=== PATIENT | male | born 1990 | race Caucasian/White ===

== ENCOUNTER 2016-06-25 17:24 | Emergency (ER) | payer BC ==
[2016-06-25] MEDS ORDERED: Toprol-Xl 25MG Tablets PO ONE (17:43)
[2016-06-25] MEDS ORDERED: Sodium Chloride 0.9% 1000 ML 1,000 ML IV SCH (17:45)
--- NOTE | 2016-06-25 17:51 | ERPHSYRPT ---
- History of Present Illness Time Seen by Provider: 06/25/16 17:30 Source: patient, family Exam Limitations: no limitations Patient Subjective Stated Complaint: PT CO FAST HEART RATE OFF AND ON FOR OVER A YEAR NOW, BUT GETTING MORE FREQUENT AND LASTING LONGER, GOT A HALTER MONITOR PLACED TODAY. STATES HEART RATE FAST SINCE 1500 TODAY, HE HAS CUT OUT ALL CAFFINE Triage Nursing Assessment: PT ALERT AND IN NO DISTRESS, RESP EASY, SKIN W/D. RATE REGULAR, Physician History: patient presents with palpatations since Wednesday; prior hx intermittant palpatations x one year; no CP or SOB; no Nausea; no fevcer; no travel; no family hx; no trauma; no drugs; other zarco healthy; no caffeine more then 2 cups a day; no hx of thyroid Timing/Duration: day(s) (2), sudden, worse Activities at Onset: rest Quality: other Chest Pain Radiation: no radiation Severity of Pain-Max: none Severity of Pain-Current: none Modifying Factors: Improves With: nothing Nitro Today/Relief: no nitro taken today Aspirin Treatment Today: no aspirin today Associated Symptoms: denies symptoms Allergies/Adverse Reactions: No Known Drug Allergies Allergy (Unverified 02/04/15 07:55) Home Medications: Citalopram Hydrobromide [Celexa] 10 mg DAILY 06/25/16 [History] Hx Tetanus, Diphtheria Vaccination/Date Given: Yes Hx Influenza Vaccination/Date Given: No Hx Pneumococcal Vaccination/Date Given: No Immunizations Up to Date: Yes - Review of Systems Constitutional: No Symptoms Eyes: No Symptoms Ears, Nose, & Throat: No Symptoms Respiratory: No Cough, No Dyspnea, No Wheezing Cardiac: Palpitations, No Chest Pain, No Edema, No Syncope Abdominal/Gastrointestinal: No Abdominal Pain, No Nausea, No Vomiting, No Diarrhea Genitourinary Symptoms: No Symptoms Musculoskeletal: No Symptoms Skin: No Symptoms Neurological: Dizziness, No Focal Weakness, No Gait Changes, No Headache, No Paralysis, No Parasthesia Psychological: No Symptoms Endocrine: No Symptoms Hematologic/Lymphatic: No Symptoms Immunological/Allergic: No Symptoms - Past Medical History Pertinent Past Medical History: Yes Musculoskeletal History: Other Other Medical History: left shoulder dislocated x10 - Past Surgical History Past Surgical History: Yes Other Surgical History: LEFT SHOULDER - Social History Smoking Status: Never smoker Exposure to second hand smoke: No Alcohol Use: Socially Drug Use: none Patient Lives Alone: No Significant Family History: no pertinent family hx - Nursing Vital Signs Temperature: 98.1 F Temperature Source: Oral Pulse Rate: 114 Respiratory Rate: 16 Pain Intensity: 0 - Physical Exam General Appearance: mild distress, alert, anxiety Eye Exam: PERRL/EOMI, eyes nml inspection, No photophobia Ears, Nose, Throat Exam: normal ENT inspection, TMs normal, pharynx normal, moist mucous membranes Neck Exam: normal inspection, non-tender, supple, full range of motion, No meningismus, No carotid bruit, No JVD, No thyromegaly Respiratory Exam: normal breath sounds, lungs clear, airway intact, No chest tenderness, No respiratory distress, No crackles/rales, No rhonchi, No wheezing Cardiovascular Exam: regular rate/rhythm, normal heart sounds, normal peripheral pulses, tachycardia (131), capillary refill <2 sec, No murmur, No friction rub Gastrointestinal/Abdomen Exam: soft, normal bowel sounds, No tenderness, No mass , No guarding, No organomegaly Rectal Exam: deferred Back Exam: normal inspection, normal range of motion, No CVA tenderness Extremity Exam: normal inspection, normal range of motion, No ben's sign, No pedal edema Neurologic Exam: alert, oriented x 3, cooperative, medicine aide II-XII nml as tested, normal mood/affect, nml cerebellar function, nml station & gait, sensation nml Skin Exam: normal color, warm, dry, No rash SpO2 Interpretation: normal SpO2: 98 Oxygen Delivery: Room Air - Course Nursing assessment & vital signs reviewed: Yes EKG Interpreted by Me: RATE (103), Sinus Tach, NORMAL AXIS, NORMAL INTERVALS, NORMAL QRS, NORMAL ST-T Rhythm Strip: Rate (131), Sinus Tachycardia (131) - Radiology Exams Chest X-ray Interpretation: Interpreted by me, Negative, No Pneumonia, No Pneumothorax , Nml Heart Size, No Infiltrates, Nml Mediastinum Ordered Tests: Active Orders 24 hr Category Date Time Status Injection Molder STAT Care 06/25/16 17:43 Active IV Insertion STAT Care 06/25/16 17:43 Active Pulse Oximetry (ED) STAT Care 06/25/16 17:43 Active Re-Check Vital Signs STAT Care 06/25/16 17:43 Active CHEST 1 VIEW (PORTABLE) Stat Exams 06/25/16 17:44 Taken CBC W DIFF Stat Lab 06/25/16 18:00 Completed CMP Stat Lab 06/25/16 18:00 Completed Free T4 Stat Lab 06/25/16 18:00 Completed MAGNESIUM Stat Lab 06/25/16 18:00 Completed PROTIME WITH INR Stat Lab 06/25/16 18:00 Completed T4 Stat Lab 06/25/16 18:00 Completed UA Stat Lab 06/25/16 17:44 Ordered Urine Triage Profile Stat Lab 06/25/16 17:44 Ordered Medication Summary Generic Name Dose Route Start Last Admin Trade Name Freq PRN Reason Stop Dose Admin Sodium Chloride 1,000 mls @ 100 mls/hr 06/25/16 17:45 06/25/16 17:57 Sodium Chloride 0.9% 1000 Ml IV 07/25/16 17:44 100 mls/hr .Q10H ANTONIA Administration Discontinued Medications Generic Name Dose Route Start Last Admin Trade Name Freq PRN Reason Stop Dose Admin Sodium Chloride Confirm 06/25/16 17:56 Sodium Chloride 0.9% 1000 Ml Administered 06/25/16 17:57 Dose 1,000 mls @ ud .ROUTE .STK-MED ONE Metoprolol Succinate 25 mg 06/25/16 17:43 06/25/16 17:57 Toprol-Xl 25mg Tablets PO 06/25/16 17:44 25 mg STAT ONE Administration Metoprolol Succinate Confirm 06/25/16 17:56 Toprol-Xl 25mg Tablets Administered 06/25/16 17:57 Dose 25 mg .ROUTE .STK-MED ONE Lab/Rad Data: Laboratory Result Diagrams 06/25/16 18:00 06/25/16 18:00 Laboratory Results 06/25/16 06/25/16 06/25/16 Range/Units 18:00 18:00 18:00 WBC (4.0-10.5) K/mm3 RBC (4.1-5.6) M/mm3 Hgb (12.5-18.0) gm/dl Hct (42-50) % MCV (78-100) fl MCH (26-32) pg MCHC (32-36) g/dl RDW (11.5-14.0) % Plt Count (150-450) K/mm3 MPV (6-9.5) fl Gran % (36.0-66.0) % Lymphocytes % (24.0-44.0) % Monocytes % (0.0-12.0) % Eosinophils % (0.00-5.0) % Basophils % (0.0-0.4) % Basophils # (0-0.4) INR 1.20 (0.8-3.0) Sodium 142 (136-145) mEq/L Potassium 3.9 (3.5-5.1) mEq/L Chloride 104 (98-107) mEq/L Carbon Dioxide 27.6 (21-32) mEq/L Anion Gap 13.8 (5-15) MEQ/L BUN 12 (9-20) mg/dL Creatinine 1.31 H (0.55-1.30) mg/dl Estimated GFR > 60 ML/MIN Glucose 151 H (70-110) MG/DL Calcium 9.5 (8.5-10.1) mg/dL Magnesium 2.0 (1.8-2.4) mg/dL Total Bilirubin 1.0 (0.2-1.0) mg/dL AST 15 (15-37) U/L ALT 30 (12-78) U/L Alkaline Phosphatase 106 (46-116) U/L Serum Total Protein 7.4 (6.4-8.2) gm/dL Albumin 4.5 (3.4-5.0) g/dL Free T4 1.20 (0.76-1.46) ng/dl Thyroxine (T4) 8.2 (4.7-13.3) UG/DL 06/25/16 Range/Units 18:00 WBC 12.2 H (4.0-10.5) K/mm3 RBC 5.12 (4.1-5.6) M/mm3 Hgb 15.0 (12.5-18.0) gm/dl Hct 42.7 (42-50) % MCV 83.4 (78-100) fl MCH 29.3 (26-32) pg MCHC 35.1 (32-36) g/dl RDW 12.4 (11.5-14.0) % Plt Count 284 (150-450) K/mm3 MPV 10.1 H (6-9.5) fl Gran % 87.0 H (36.0-66.0) % Lymphocytes % 8.9 L (24.0-44.0) % Monocytes % 3.8 (0.0-12.0) % Eosinophils % 0.1 (0.00-5.0) % Basophils % 0.2 (0.0-0.4) % Basophils # 0.02 (0-0.4) INR (0.8-3.0) Sodium (136-145) mEq/L Potassium (3.5-5.1) mEq/L Chloride (98-107) mEq/L Carbon Dioxide (21-32) mEq/L Anion Gap (5-15) MEQ/L BUN (9-20) mg/dL Creatinine (0.55-1.30) mg/dl Estimated GFR ML/MIN Glucose (70-110) MG/DL Calcium (8.5-10.1) mg/dL Magnesium (1.8-2.4) mg/dL Total Bilirubin (0.2-1.0) mg/dL AST (15-37) U/L ALT (12-78) U/L Alkaline Phosphatase (46-116) U/L Serum Total Protein (6.4-8.2) gm/dL Albumin (3.4-5.0) g/dL Free T4 (0.76-1.46) ng/dl Thyroxine (T4) (4.7-13.3) UG/DL reviewed - Progress Progress: improved, re-examined (after meds) Air Movement: good Progress Note: 06/25/16 17:51 ekg and xr done; meds given; at bedside will recheck 06/25/16 18:34 recheck post meds; pulse down to 91; symptoms improved; xr pending; cbx ok; reviewed labs from earlier and all wnl including thyroid; xr pending; will continue to monitor and recheck; at bedside 06/25/16 18:50 improved vs and clinically feeling better; treatment plan outlined; instructions given Blood Culture(s) Obtained: No Antibiotics given: No Counseled pt/family regarding: lab results, diagnosis, need for follow-up, rad results - Departure Time of Disposition: 18:51 Departure Disposition: Home Clinical Impression: Heart palpitations, Sinus tachycardia by electrocardiogram Condition: Stable Critical Care Time: No Referrals: EDIS CHO [ACTIVE STAFF] - Instructions: Arrhythmias Additional Instructions: rest; no work 48 hours; avoid stimulants - nuts; chocolate, caffeine; call lmd for recheck and cardiology referral Follow-up with family doctor as directed. Call for appointment. Return if any problems. If you smoke please stop. Call or follow up with your family doctor for assistance if you need it to stop. Please wear your seatbelt when driving. Have a nice day. Thank you for allowing us to participate in your care today. :o) Dr Yaya Gaitan Prescriptions: Metoprolol Succinate 25 mg Xl* [Toprol-Xl 25MG Tablets] 25 mg PO QAM #30 tab
[2016-06-25] MEDS ORDERED: Toprol-Xl 25MG Tablets ONE (17:56)
[2016-06-25] MEDS ORDERED: Sodium Chloride 0.9% 1000 ML 1,000 ML ONE (17:56)
[2016-06-25 18:09] LABS: BASOPHIL % 0.2 % (0.0-0.4); Eosinophil % 0.1 % (0.00-5.0); Lymphocytes % 8.9 % (24.0-44.0); Mean Cell Volume 83.4 fl (78-100); Mean Corpuscular Hemoglobin 29.3 pg (26-32); Mean Platelet Volume 10.1 fl (6-9.5); Monocytes % 3.8 % (0.0-12.0); Platelet Count 284 K/mm3 (150-450); Red Blood Count 5.12 M/mm3 (4.1-5.6); Red Cell Distribution Width 12.4 % (11.5-14.0); White Blood Count 12.2 K/mm3 (4.0-10.5)
[2016-06-25 18:33] LABS: INR 1.2 (0.8-3.0); PROTIME 13.4 SECONDS (8.83-12.87)
[2016-06-25 18:36] LABS: ALBUMIN 4.5 g/dL (3.4-5.0); ALKALINE PHOSPHATASE 106 U/L (46-116); ANION GAP 13.8 MEQ/L (5-15); BLOOD UREA NITROGEN 12 mg/dL (9-20); CHLORIDE 104 mEq/L (98-107); Carbon Dioxide 27.6 mEq/L (21-32); Glucose 151 MG/DL (70-110); Potassium 3.9 mEq/L (3.5-5.1); SGOT/AST 15 U/L (15-37); SGPT/ALT 30 U/L (12-78); SODIUM 142 mEq/L (136-145); Total Protein 7.4 gm/dL (6.4-8.2)
[2016-06-25 19:10] VITALS: BP 126/77; PULSE 103; O2SAT 97
--- NOTE | 2016-06-26 08:45 | XRAY ---
Indication: Palpitations. Comparison: None Portable chest demonstrates normal heart, lungs, and bony thorax with a few calcified granulomas.
== END 2016-06-25 19:09 | disposition home or self-care (01) ==
LOC: ED 17:24
DX: R00.2 Palpitations (principal); R00.0 Tachycardia, unspecified
CPT/HCPCS: 36000; 36415; 71010; 80053; 83735; 84436; 84439; 85025; 85610; 93041; 96360; 96361; 99283; 99284; 99285

== ENCOUNTER 2016-08-30 01:02 | Emergency (ER) | payer BC ==
--- NOTE | 2016-08-30 01:26 | ERPHSYRPT ---
- History of Present Illness Time Seen by Provider: 08/30/16 01:16 Historian: patient Exam Limitations: no limitations Patient Subjective Stated Complaint: pt states he got light headed, had chest pressure, and felt like he was going to pass out while working. Triage Nursing Assessment: pt alert and oriented, answers questions approp. skin pink warm and dry. pt moved slef over from ems cot to stretcher. respirations nonlbored with lungs cta. heart rate 87 sinus rhythm on monitor. Physician History: This is a 26-year-old white male he arrives with complaint of pain in anterior chest which she said initially was a pressure then became more intense pain lasting approximately 15 minutes which occurred at 11:[address] this was associated with feeling as if he was going to pass out patient did have shortness of breath associated with his symptoms he states he is not having any pain or shortness of breath at this time. Patient does state he has a history of Izjdv-Dfpvouhcj-Ubfsr and is scheduled for ablation the future. He has not taken any aspirin. Past medical history includes left shoulder dislocation, Atilu-Msgrktywi-Osdel syndrome. Past surgical history includes a shoulder surgery. Social history patient denies tobacco alcohol or illicit drug use Timing/Duration: today (11:00 PM) Activities at Onset: other (driving) Quality: pressure Location: substernal Chest Pain Radiation: no radiation Severity of Pain-Max: moderate Severity of Pain-Current: none Modifying Factors: Improves With: nothing Associated Symptoms: shortness of breath, other (patient felt like he was going to pass out), No nausea, No vomiting, No palpitations, No heartburn, No abdominal pain, No cough, No hurts to breathe, No diaphoresis, No chills, No fever, No fatigue, No weakness, No swelling/lump in chest, No syncope, No rash, No headache, No dizziness, No edema, No back pain Prior Chest Pain/Cardiac Workup: recently seen/treated (patient with history of Gimaz-Mycuegckb-Nxktb sees Dr. Shirley at [facility]) Aspirin Treatment Today: no aspirin today Allergies/Adverse Reactions: No Known Drug Allergies Allergy (Verified 08/30/16 01:43) Hx Tetanus, Diphtheria Vaccination/Date Given: Yes Hx Influenza Vaccination/Date Given: No Hx Pneumococcal Vaccination/Date Given: No Immunizations Up to Date: Yes - Review of Systems Constitutional: No Fever, No Chills Eyes: No Symptoms Ears, Nose, & Throat: No Symptoms Respiratory: Dyspnea, No Cough Cardiac: Chest Pain, No Edema, No Syncope Abdominal/Gastrointestinal: No Abdominal Pain, No Nausea, No Vomiting, No Diarrhea, No Constipation, No Hematemesis, No Hematochezia, No Melena, No Dysphagia, No Appetite Changes Genitourinary Symptoms: No Dysuria Musculoskeletal: No Back Pain, No Neck Pain Skin: No Rash Neurological: No Dizziness, No Focal Weakness, No Sensory Changes Psychological: No Symptoms Endocrine: No Symptoms All Other Systems: Reviewed and Negative - Past Medical History Pertinent Past Medical History: Yes Cardiac History: Other (history of Xpxqt-Hgrianflj-Ooaja disease) Musculoskeletal History: Other Other Medical History: left shoulder dislocated x10. 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 - Past Surgical History Past Surgical History: Yes Other Surgical History: LEFT SHOULDER - Social History Smoking Status: Never smoker Exposure to second hand smoke: No Alcohol Use: Socially Drug Use: none Patient Lives Alone: No Significant Family History: no pertinent family hx - Nursing Vital Signs Temperature: 97.9 F Temperature Source: Oral Pulse Rate: 73 Respiratory Rate: 18 Pain Intensity: 0 - Physical Exam General Appearance: no apparent distress, alert Eye Exam: PERRL/EOMI, eyes nml inspection Ears, Nose, Throat Exam: normal ENT inspection, moist mucous membranes Neck Exam: normal inspection, non-tender, supple, full range of motion Respiratory Exam: normal breath sounds, lungs clear, No respiratory distress Cardiovascular Exam: regular rate/rhythm, normal heart sounds Gastrointestinal/Abdomen Exam: soft, No tenderness, No mass Back Exam: normal inspection, No CVA tenderness, No vertebral tenderness Extremity Exam: normal inspection, normal range of motion Neurologic Exam: alert, oriented x 3, cooperative, normal mood/affect, sensation nml, No motor deficits Skin Exam: normal color, warm, dry SpO2 Interpretation: normal (97%) SpO2: 97 Oxygen Delivery: Room Air - Course Nursing assessment & vital signs reviewed: Yes EKG Interpreted by Me: RATE (72 bpm), Sinus Rhythm, NORMAL AXIS, Other ( EKG, sinus rhythm, 72 bpm, normal axis, no acute ST or T wave changes, moderate amount of artifact) Ordered Tests: Active Orders 24 hr Category Date Time Status Hospice Clinical Supervisor STAT Care 08/30/16 01:20 Active EKG-ER Only STAT Care 08/30/16 01:20 Active EKG-ER Only STAT Care 08/30/16 02:32 Active IV Insertion STAT Care 08/30/16 01:20 Active Pulse Oximetry (ED) STAT Care 08/30/16 01:20 Active CHEST 1 VIEW (PORTABLE) Stat Exams 08/30/16 01:21 Taken CBC W DIFF Stat Lab 08/30/16 01:28 Completed CMP Stat Lab 08/30/16 01:28 Completed TROPONIN Q3H Lab 08/30/16 01:28 Completed TROPONIN Q3H Lab 08/30/16 04:00 Completed TROPONIN Q3H Lab 08/30/16 07:30 Ordered TROPONIN Q3H Lab 08/30/16 10:30 Ordered TROPONIN Q3H Lab 08/30/16 13:30 Ordered Medication Summary Discontinued Medications Generic Name Dose Route Start Last Admin Trade Name Freq PRN Reason Stop Dose Admin Aspirin 324 mg 08/30/16 01:34 08/30/16 01:37 Baby Aspirin 81 Mg Chew PO 08/30/16 01:35 324 mg STAT ONE Administration Aspirin Confirm 08/30/16 01:37 Baby Aspirin 81 Mg Chew Administered 08/30/16 01:38 Dose 324 mg .ROUTE .STK-MED ONE Potassium Chloride 20 meq 08/30/16 02:57 08/30/16 03:14 Klor Con 10 Meq PO 08/30/16 02:58 20 meq STAT ONE Administration Potassium Chloride Confirm 08/30/16 03:13 Klor Con 10 Meq Administered 08/30/16 03:14 Dose 20 meq PO .STK-MED ONE Lab/Rad Data: Laboratory Result Diagrams 08/30/16 01:28 08/30/16 01:28 Laboratory Results 08/30/16 08/30/16 08/30/16 Range/Units 04:00 01:28 01:28 WBC (4.0-10.5) K/mm3 RBC (4.1-5.6) M/mm3 Hgb (12.5-18.0) gm/dl Hct (42-50) % MCV (78-100) fl MCH (26-32) pg MCHC (32-36) g/dl RDW (11.5-14.0) % Plt Count (150-450) K/mm3 MPV (6-9.5) fl Gran % (36.0-66.0) % Lymphocytes % (24.0-44.0) % Monocytes % (0.0-12.0) % Eosinophils % (0.00-5.0) % Basophils % (0.0-0.4) % Basophils # (0-0.4) Sodium 142 (136-145) mEq/L Potassium 3.2 L (3.5-5.1) mEq/L Chloride 103 (98-107) mEq/L Carbon Dioxide 29.7 (21-32) mEq/L Anion Gap 12.9 (5-15) MEQ/L BUN 15 (9-20) mg/dL Creatinine 1.45 H (0.55-1.30) mg/dl Estimated GFR > 60 ML/MIN Glucose 111 H (70-110) MG/DL Calcium 9.2 (8.5-10.1) mg/dL Total Bilirubin 0.6 (0.2-1.0) mg/dL AST 24 (15-37) U/L ALT 40 (12-78) U/L Alkaline Phosphatase 138 H (46-116) U/L Troponin I < 0.017 < 0.017 (0.000-0.056) ng/ml Serum Total Protein 8.3 H (6.4-8.2) gm/dL Albumin 4.7 (3.4-5.0) g/dL 17 Range/Units 01:28 WBC 10.9 H (4.0-10.5) K/mm3 RBC 5.57 (4.1-5.6) M/mm3 Hgb 16.4 (12.5-18.0) gm/dl Hct 46.4 (42-50) % MCV 83.3 (78-100) fl MCH 29.4 (26-32) pg MCHC 35.3 (32-36) g/dl RDW 12.5 (11.5-14.0) % Plt Count 327 (150-450) K/mm3 MPV 10.6 H (6-9.5) fl Gran % 59.4 (36.0-66.0) % Lymphocytes % 30.6 (24.0-44.0) % Monocytes % 7.7 (0.0-12.0) % Eosinophils % 2.0 (0.00-5.0) % Basophils % 0.3 (0.0-0.4) % Basophils # 0.03 (0-0.4) Sodium (136-145) mEq/L Potassium (3.5-5.1) mEq/L Chloride (98-107) mEq/L Carbon Dioxide (21-32) mEq/L Anion Gap (5-15) MEQ/L BUN (9-20) mg/dL Creatinine (0.55-1.30) mg/dl Estimated GFR ML/MIN Glucose (70-110) MG/DL Calcium (8.5-10.1) mg/dL Total Bilirubin (0.2-1.0) mg/dL AST (15-37) U/L ALT (12-78) U/L Alkaline Phosphatase (46-116) U/L Troponin I (0.000-0.056) ng/ml Serum Total Protein (6.4-8.2) gm/dL Albumin (3.4-5.0) g/dL - Progress Progress: improved Air Movement: fair Progress Note: 08/30/16 02:59 Patient with no further pain or problems. No ectopy on monitor troponin within normal limits patient with a potassium of 3.2. Repeat EKG obtained the August 30, 2016 at 2:52 AM normal sinus rhythm 68 bpm normal axis no acute ST or T wave changes normal EKG. Patient states he is scheduled to have an ablation on September 07 at [facility] [address] Chip Shirley Will contact physician content architect for Dr. Shirley. 08/30/16 03:22 I discussed the patient's case with Dr. Matthews (physician content architect for Dr. Chip Shirley. My review the patient's presentation is vitals and history as well as laboratory studies and x-rays. Will plan to repeat troponin 3 hours after last draw. Patient will be able to be discharged after this if troponin is normal. He is to continue current medications. Patient was given 20 mEq of potassium chloride in the emergency room he has also received aspirin in the emergency room. 08/30/16 04:37 Patient's repeat troponin within normal limits patient with no further problems Will discharge. - Departure Time of Disposition: 04:37 Departure Disposition: Home Clinical Impression: History of Hlbtz-Duyzgjvzm-Uhhvd (WPW) syndrome Chest pain Qualifiers: Chest pain type: unspecified Qualified Code(s): R07.9 - Chest pain, unspecified Condition: Fair Critical Care Time: No Referrals: SCOTT CHANDRA NP [Primary Care Provider] - Additional Instructions: Return home.rest Follow-up with your family doctor.call Wednesday Follow-up with Dr. Shirley as scheduled. Continue medications as prescribed by your laboratory animal caretaker. Return for acute distress or for severe symptoms.
[2016-08-30 01:34] LABS: BASOPHIL % 0.3 % (0.0-0.4); Granulocytes % 59.4 % (36.0-66.0); Lymphocytes % 30.6 % (24.0-44.0); Mean Cell Volume 83.3 fl (78-100); Mean Corpuscular Hemoglobin 29.4 pg (26-32); Mean Platelet Volume 10.6 fl (6-9.5); Monocytes % 7.7 % (0.0-12.0); Platelet Count 327 K/mm3 (150-450); Red Blood Count 5.57 M/mm3 (4.1-5.6); Red Cell Distribution Width 12.5 % (11.5-14.0); White Blood Count 10.9 K/mm3 (4.0-10.5)
[2016-08-30] MEDS ORDERED: BABY ASPIRIN 81 MG CHEW PO ONE (01:34)
[2016-08-30] MEDS ORDERED: BABY ASPIRIN 81 MG CHEW ONE (01:37)
[2016-08-30 01:53] LABS: ALBUMIN 4.7 g/dL (3.4-5.0); ALKALINE PHOSPHATASE 138 U/L (46-116); ANION GAP 12.9 MEQ/L (5-15); BILIRUBIN,TOTAL 0.6 mg/dL (0.2-1.0); BLOOD UREA NITROGEN 15 mg/dL (9-20); CHLORIDE 103 mEq/L (98-107); Carbon Dioxide 29.7 mEq/L (21-32); Glucose 111 MG/DL (70-110); Potassium 3.2 mEq/L (3.5-5.1); SGOT/AST 24 U/L (15-37); SGPT/ALT 40 U/L (12-78); SODIUM 142 mEq/L (136-145); Total Protein 8.3 gm/dL (6.4-8.2)
[2016-08-30] MEDS ORDERED: Klor Con 10 MEQ PO ONE ×2 (02:57→03:13)
[2016-08-30 04:59] VITALS: BP 119/74; PULSE 59; O2SAT 98
--- NOTE | 2016-08-30 08:47 | XRAY ---
Indication: Chest pain and short of breath. Comparison: June 25, 2016. AP chest again demonstrates normal heart, lungs, and bony thorax with a few calcified granulomas.
== END 2016-08-30 04:59 | disposition home or self-care (01) ==
LOC: ED 01:02
DX: R07.89 Other chest pain (principal); I45.6 Pre-excitation syndrome; R42 Dizziness and giddiness
CPT/HCPCS: 36415; 71010; 80053; 84484; 85025; 93005; 93041; 99283; A9270-GY

== ENCOUNTER 2016-11-07 22:48 | Emergency (ER) | payer BC ==
--- NOTE | 2016-11-07 23:02 | ERPHSYRPT ---
- History of Present Illness Time Seen by Provider: 11/07/16 22:57 Source: patient, family Exam Limitations: no limitations Physician History: pt is 26 year old male with SP ablation for cardiac arrythmia which worked very well last week and no further cardiac symptoms at all ; however he now has left groin knot at site and pain with walking , bruising and swelling localized to site ; calves nontender; abd nontender ; no CP or palpitations. Method of Injury: other (no injury just post op) Occurred: last week Quality: constant, aching Severity of Pain-Max: moderate Severity of Pain-Current: moderate Lower Extremities Pain: other: left (groin) Modifying Factors: Improves With: movement Allergies/Adverse Reactions: No Known Drug Allergies Allergy (Verified 11/07/16 23:05) Home Medications: No Home Meds 1 ea UD 11/07/16 [History] Hx Tetanus, Diphtheria Vaccination/Date Given: Yes Hx Influenza Vaccination/Date Given: No Hx Pneumococcal Vaccination/Date Given: No - Review of Systems Constitutional: No Fever, No Chills Eyes: No Symptoms Ears, Nose, & Throat: No Symptoms Respiratory: No Cough, No Dyspnea Cardiac: No Chest Pain, No Edema, No Syncope Abdominal/Gastrointestinal: No Abdominal Pain, No Nausea, No Vomiting, No Diarrhea Genitourinary Symptoms: No Dysuria Musculoskeletal: Other (pain left groin), No Back Pain, No Neck Pain Skin: No Rash Neurological: No Dizziness, No Focal Weakness, No Sensory Changes Psychological: No Symptoms Endocrine: No Symptoms Hematologic/Lymphatic: No Symptoms Immunological/Allergic: No Symptoms All Other Systems: Reviewed and Negative - Past Medical History Pertinent Past Medical History: Yes Cardiac History: Other (history of Nfhpv-Myyszncur-Azujk disease) Musculoskeletal History: Other Other Medical History: left shoulder dislocated x10. 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 - Past Surgical History Past Surgical History: Yes Other Surgical History: LEFT SHOULDER - Social History Smoking Status: Never smoker Exposure to second hand smoke: No Alcohol Use: Socially Drug Use: none Patient Lives Alone: No Significant Family History: no pertinent family hx - Nursing Vital Signs Nursing Vital Signs: Initial Vital Signs Temperature 98.0 F Temperature Source Oral Pulse Rate 82 Respiratory Rate 18 Blood Pressure [Right Arm] 133/63 Pain Intensity 2 - Physical Exam General Appearance: alert Eyes, Ears, Nose, Throat Exam: moist mucous membranes Neck Exam: non-tender, supple Cardiovascular/Respiratory Exam: chest non-tender, normal breath sounds, regular rate/rhythm, no respiratory distress Gastrointestinal/Abdominal Exam: non-tender Back Exam: normal inspection, No vertebral tenderness Hips Exam: bilateral: non-tender, normal inspection, normal range of motion, no evidence of injury Legs Exam: left leg: other (tender left groin with nodule nonpulsitile), bilateral leg: non-tender, normal inspection, normal range of motion, no evidence of injury Knees Exam: bilateral knee: non-tender, normal inspection, normal range of motion, no evidence of injury Ankle Exam: bilateral ankle: non-tender, normal inspection, normal range of motion, no evidence of injury Foot Exam: bilateral foot: non-tender, normal inspection, normal range of motion , no evidence of injury DTR - Lower Extremities Exam: knee (R): 2+, knee (L): 2+, ankle (R): 2+, ankle ( L): 2+ Neuro/Tendon Exam: normal sensation, normal motor functions Mental Status Exam: alert, oriented x 3, cooperative Skin Exam: normal color, warm, dry - Course Nursing assessment & vital signs reviewed: Yes Ordered Tests: Active Orders 24 hr Category Date Time Status ARTERIAL UNILAT/LTD LOWER EXT [US] Stat Exams 11/07/16 23:05 Taken VENOUS UNILAT/LIMITED EXTREMIT [US] Stat Exams 11/07/16 23:04 Taken CBC W DIFF Stat Lab 11/07/16 23:56 Completed Lab/Rad Data: Laboratory Result Diagrams 11/07/16 23:56 Laboratory Results 11/07/16 Range/Units 23:56 WBC 8.8 (4.0-10.5) K/mm3 RBC 4.78 (4.1-5.6) M/mm3 Hgb 14.1 (12.5-18.0) gm/dl Hct 40.3 L (42-50) % MCV 84.3 (78-100) fl MCH 29.5 (26-32) pg MCHC 35.0 (32-36) g/dl RDW 12.5 (11.5-14.0) % Plt Count 261 (150-450) K/mm3 MPV 10.3 H (6-9.5) fl Gran % 65.2 (36.0-66.0) % Lymphocytes % 26.3 (24.0-44.0) % Monocytes % 6.8 (0.0-12.0) % Eosinophils % 1.5 (0.00-5.0) % Basophils % 0.2 (0.0-0.4) % Basophils # 0.02 (0-0.4) - Progress Progress: improved, re-examined Progress Note: 11/08/16 00:55 us was neg and discussed with pt who is ready for DC to f/u PCP and will return if any swelling or other changes as he is advised still at some risk; Counseled pt/family regarding: lab results, diagnosis, need for follow-up, rad results - Departure Time of Disposition: 00:56 Departure Disposition: Home Clinical Impression: sore groin SP cath Condition: Good Critical Care Time: No Instructions: Contusion Additional Instructions: followup with your Dr as planned. you may use a heating pad; return meantime if increased swelling or redness or fever , or other concerns as you are still at risk for blood clots later although not found on this study which is reassuring
[2016-11-07 23:04] VITALS: O2SAT 97
[2016-11-07 23:32] VITALS: PULSE 82
[2016-11-07 23:59] LABS: BASOPHIL % 0.2 % (0.0-0.4); Eosinophil % 1.5 % (0.00-5.0); Granulocytes % 65.2 % (36.0-66.0); Lymphocytes % 26.3 % (24.0-44.0); Mean Cell Volume 84.3 fl (78-100); Mean Corpuscular Hemoglobin 29.5 pg (26-32); Mean Platelet Volume 10.3 fl (6-9.5); Monocytes % 6.8 % (0.0-12.0); Platelet Count 261 K/mm3 (150-450); Red Blood Count 4.78 M/mm3 (4.1-5.6); Red Cell Distribution Width 12.5 % (11.5-14.0); White Blood Count 8.8 K/mm3 (4.0-10.5)
[2016-11-08 00:04] VITALS: BP 133/63
--- NOTE | 2016-11-08 10:03 | XRAY ---
Indication: Left leg pain. 2-dimensional sonogram and color Doppler imaging of the major venous vessels of the left leg was performed. Comparison: None No thrombus seen in the examined deep venous vessels of the left leg including greater saphenous vein. Veins demonstrate normal compressibility. Venous waveforms are normal with and without augmentation. Impression: Left leg negative for DVT. Comment: Preliminary report was given.
--- NOTE | 2016-11-08 10:06 | XRAY ---
Indication: Left groin pain and "knot." Status post heart catheterization 5 days ago. Possible pseudo-aneurysm. 2-dimensional sonogram and color Doppler imaging of the left groin region demonstrates patent common femoral artery without pseudoaneurysm or abnormal fluid collection. No suspicious solid/cystic mass either. Comment: Preliminary report was given.
== END 2016-11-08 01:10 | disposition home or self-care (01) ==
LOC: ED 22:48
DX: R10.30 Lower abdominal pain, unspecified (principal); I45.6 Pre-excitation syndrome
CPT/HCPCS: 36415; 85025; 93926; 93971; 99283